=== PATIENT | female | born 1965 | race Caucasian/White ===

== ENCOUNTER 2017-07-23 14:17 | Emergency (ER) | payer SELFPAY ==
[2017-07-23 14:31] VITALS: BP 124/84
[2017-07-23] MEDS ORDERED: DIPH/PERTUSS(ACELL)/TETANUS VAC/PF 0.5 ML SYR (>=10YO) IM ONE (14:40)
--- NOTE | 2017-07-23 14:46 | ER Document Report ---
HPI - HPI Pain Level: 4 Notes: Patient is a 52-year-old female with a h/o type 2 DM, well-controlled, who presents to the ED complaining of left plantar foot pain status post injury 2 weeks ago. Patient states that she stepped on a binder clip that she believes punctured her skin. Patient is most concerned about a possible infection to that area. Patient states that she is been ambulatory, but limping on occasion. Patient has not noticed any other obvious abscess or purulent discharge. Patient states the pain does not radiate and is located to the pads of her toes. She has not had any other recent illness. Denies any antibiotic drug allergies. Denies any smoking or IV drug use. Patient denies any history of MRSA. Denies any headache, fever, URI, sore throat, chest pain, palpitations , syncope, cough, shortness of breath, wheeze, dyspnea, abdominal pain, nausea/ vomiting/diarrhea, urinary retention, dysuria, hematuria, loss of control of bowel or bladder, numbness/tingling, saddle anesthesia, muscle paralysis/ weakness, or rash. Unknown last tetanus. - ROS Systems Reviewed and Negative: Yes All other systems reviewed and negative - REPRODUCTIVE Reproductive: DENIES: : Past Medical History - Social History Smoking Status: Never Smoker Family History: Other - FH of IBD - Past Medical History Cardiac Medical History: Reports: Hx Hypertension Neurological Medical History: Denies: Hx Seizures Endocrine Medical History: Reports: Hx Diabetes Mellitus Type 2 Psychiatric Medical History: Reports: Hx Depression Past Surgical History: Denies: Hx Hysterectomy - Immunizations Hx Diphtheria, Pertussis, Tetanus Vaccination: Yes Hx Pneumococcal Vaccination: 02/03/14 Vertical Provider Document - CONSTITUTIONAL Agree With Documented VS: Yes Notes: PHYSICAL EXAMINATION: GENERAL: Well-appearing, well-nourished and in no acute distress. LUNGS: Breath sounds clear to auscultation bilaterally and equal. No wheezes rales or rhonchi. HEART: Regular rate and rhythm without murmurs, rubs, gallops. Musculoskeletal: Left foot: FROM to passive/active. Strength 5+/5. No obvious swelling, warmth, erythema, streaks, abscess, or discharge. + tenderness to the plantar facscia of distal foot. There is a noted skin circular lambert from the clip she stepped on. N/V intact distal. Extremities: No cyanosis, clubbing, or edema b/l. Peripheral pulses 2+. Capillary refill less than 3 seconds. NEUROLOGICAL: Normal speech, normal gait. Normal sensory, motor exams PSYCH: Normal mood, normal affect. SKIN: Warm, Dry, normal turgor, no rashes or lesions noted. - INFECTION CONTROL TRAVEL OUTSIDE OF THE [place] IN LAST 30 DAYS: No Course - Re-evaluation Re-evalutation: 07/23/17 15:05 Patient is an afebrile, well-hydrated, 52-year-old female who presents to the ED with left foot pain, suspect plantar fasciitis versus possible mild infection. Vitals are acceptable. PE is otherwise unremarkable for any neurovascular compromise, obvious tendon/ligament rupture, obvious fracture/ dislocation, septic joint, cellulitis/abscess. X-ray was unremarkable for any acute pathology. Tdap was given today. As precautionary, I will be sending her home with Keflex/Bactrim as she is a diabetic. Conservative measures for symptoms. Recheck with your PCM in 2-3 days. Return to the ED with any worsening/concerning symptoms otherwise as reviewed discharge. Patient is in agreement. - Vital Signs Vital signs: Temp Pulse Resp BP Pulse Ox 98.2 F 85 16 124/84 96 07/23/17 14:29 07/23/17 14:29 07/23/17 14:29 07/23/17 14:29 07/23/17 14:29 Discharge - Discharge Clinical Impression: Left foot pain Condition: Stable Disposition: HOME, SELF-CARE Instructions: Epsom Salt Soaks ([facility]) Additional Instructions: Rest, cool compress Keep the skin clean Wash with soap and water Epsom salt soaks Triple antibiotic ointment if any break in the skin Tylenol/ibuprofen as needed Light stretches daily Strength exercises as able Moist heat and massage may help Monitor symptoms closely for any worsening signs of infection F/u with your PCP in 3-5 days for a recheck Consider consult(s) with Orthopedics/physical therapy for ongoing/worsening symptoms Return to the ED with any worsening symptoms and/or development of fever, headache, chest pain, palpitations, syncope, shortness of breath, trouble breathing, abdominal pain, n/v/d, abscess, purulent discharge, red streaks, worsening swelling, or other worsening symptoms that are concerning to you. Prescriptions: Cephalexin Monohydrate [Keflex 500 mg Capsule] 500 mg PO BID #20 capsule Sulfamethoxazole/Trimethoprim [Bactrim Ds Tablet] 1 each PO BID #20 tablet Referrals: [facility] ([facility]) [Provider Group] - Follow up as needed RUSSELL MEHTA DPM [ACTIVE STAFF] - Follow up as needed
--- NOTE | 2017-07-23 15:01 | RADIOLOGY REPORT (SQ) ---
EXAM DESCRIPTION: FOOT LEFT COMPLETE COMPLETED DATE/TIME: 07/23/2017 2:51 pm REASON FOR STUDY: left foot pain COMPARISON: None. NUMBER OF VIEWS: Three views. TECHNIQUE: AP, lateral and oblique radiographic images acquired of the left foot. LIMITATIONS: None. FINDINGS: MINERALIZATION: Normal. BONES: No acute fracture or dislocation. Prominent calcaneal spurs. JOINTS: No effusions. SOFT TISSUES: No soft tissue swelling. No foreign body. OTHER: No other significant finding. IMPRESSION: Calcaneal spurs with no acute abnormality. TECHNICAL DOCUMENTATION: JOB ID: [id number] [employer]- All Rights Reserved Reading location - IP/workstation name: [email or web address]
== END 2017-07-23 15:29 | disposition home or self-care (01) ==
LOC: ER 14:17
DX: M79.672 Pain in left foot (principal); E11.9 Type 2 diabetes mellitus without complications; I10 Essential (primary) hypertension; W22.8XXA Striking against or struck by other objects, initial encounter
CPT/HCPCS: 99283

== ENCOUNTER 2017-09-12 00:29 | Emergency (ER) | payer BC ==
[2017-09-12 01:17] LABS: ABSOLUTE BASOPHILS # (AUTO) 0.1 10^3/uL (0.0-0.2); ABSOLUTE EOSINOPHILS # (AUTO) 0.2 10^3/uL (0.0-0.6); ABSOLUTE LYMPHOCYTES (AUTO) 2.8 10^3/uL (0.5-4.7); ABSOLUTE MONOCYTES (AUTO) 0.6 10^3/uL (0.1-1.4); ABSOLUTE NEUT (AUTO) 3.3 10^3/uL (1.7-8.2); BASOPHILS % (AUTO) 1.1 % (0-2); EOSINOPHILS % (AUTO) 2.2 % (0-6); HEMATOCRIT 43.8 % (36.0-47.0); HEMOGLOBIN 14.4 g/dL (12.0-15.5); LYMPHOCYTES % (AUTO) 40.4 % (13-45); MEAN CORPUSCULAR HEMOGLOBIN 30.1 pg (27.0-33.4); MEAN CORPUSCULAR HGB CONC 32.8 g/dL (32.0-36.0); MEAN CORPUSCULAR VOLUME 92 fl (80-97); MONOCYTES % (AUTO) 9.3 % (3-13); PLATELET COUNT 248 10^3/uL (150-450); RED BLOOD COUNT 4.78 10^6/uL (3.72-5.28); RED CELL DISTRIBUTION WIDTH 13.6 % (11.5-14.0); TOTAL CELLS COUNTED % (AUTO) 100 %
[2017-09-12 01:42] LABS: ALANINE AMINOTRANSFERASE 42 U/L (9-52); ALBUMIN 3.9 g/dL (3.5-5.0); ALKALINE PHOSPHATASE 121 U/L (38-126); ANION GAP 12 (5-19); ASPARTATE AMINO TRANSFERASE 28 U/L (14-36); BILIRUBIN,DIRECT 0.1 mg/dL (0.0-0.4); BILIRUBIN,TOTAL 0.1 mg/dL (0.2-1.3); BLOOD UREA NITROGEN 12 mg/dL (7-20); CALCIUM 9.4 mg/dL (8.4-10.2); CARBON DIOXIDE 28 mmol/L (22-30); CHLORIDE 98 mmol/L (98-107); LIPASE 202.3 U/L (23-300); POTASSIUM 4.2 mmol/L (3.6-5.0); SODIUM 138.2 mmol/L (137-145); TOTAL PROTEIN 6.3 g/dL (6.3-8.2)
[2017-09-12 01:51] LABS: GLUCOSE 428 mg/dL (75-110)
[2017-09-12] MEDS ORDERED: NORMAL SALINE 1000 ML 1,000 ML IV ONE ×2 (01:59→02:21)
[2017-09-12 02:16] LABS: APPEARANCE,URINE CLEAR; BILIRUBIN,URINE NEGATIVE (NEGATIVE); COLOR,URINE STRAW; GLUCOSE, URINE >=500 mg/dL (NEGATIVE); KETONES,URINE NEGATIVE (NEGATIVE); LEUKOCYTE ESTERASE,URINE TRACE (NEGATIVE); NITRITE,URINE NEGATIVE (NEGATIVE); PROTEIN,URINE NEGATIVE (NEGATIVE); URINE SPECIFIC GRAVITY 1.031; UROBILINOGEN,URINE NEGATIVE mg/dL (<2.0)
--- NOTE | 2017-09-12 02:45 | ER Document Report ---
ED General - General Chief Complaint: High Blood Sugar Stated Complaint: BLOOD SUGAR PROBLEMS Time Seen by Provider: 09/12/17 00:51 Mode of Arrival: Ambulatory Information source: Patient TRAVEL OUTSIDE OF THE [place] IN LAST 30 DAYS: No - HPI Patient complains to provider of: high blood sugar Onset: Other - "all day" Quality of pain: No pain Associated symptoms: Sweating Exacerbated by: Denies Relieved by: Denies Similar symptoms previously: Yes Recently seen / treated by doctor: No Notes: Patient states that her blood sugar was 455 prior to her driving herself here for evaluation. She does take Invokana as well as metformin and has not missed any doses recently. Patient states that her blood sugars normally run high with her last hemoglobin A1c being 8.6. She does see Dr. Gore who is her primary medical doctor. She states her blood sugars throughout the day today were 258 399 and then 455. She states there is no change in her diet. She does have a history of hypertension pressure and anxiety. She is on cholesterol medications because "I have diabetes". Past surgical history significant for uterine ablation. Patient does not drink or smoke. She denies any nausea vomiting diarrhea visual changes sore throat chest pain shortness of breath abdominal pain dysuria or any other urinary symptoms. States prior to arrival she took a 5 hour energy drink because her son stated that it will increase her metabolism and drop her sugar. - Related Data Allergies/Adverse Reactions: niacin [From Niaspan] Allergy (Severe, Verified 09/12/17 01:09) Shortness of Breath Past Medical History - General Information source: Patient - Social History Smoking Status: Never Smoker Frequency of alcohol use: None Drug Abuse: None Lives with: Family Family History: Other - FH of IBD Patient has suicidal ideation: No Patient has homicidal ideation: No - Past Medical History Cardiac Medical History: Reports: Hx Hypercholesterolemia, Hx Hypertension Pulmonary Medical History: Reports: None EENT Medical History: Reports: None Neurological Medical History: Reports: None. Denies: Hx Seizures Endocrine Medical History: Reports: Hx Diabetes Mellitus Type 2 Renal/ Medical History: Reports: None. Denies: Hx Peritoneal Dialysis Malignancy Medical History: Reports: None GI Medical History: Reports: None Musculoskeltal Medical History: Reports None Skin Medical History: Reports None Psychiatric Medical History: Reports: Hx Anxiety, Hx Depression Traumatic Medical History: Reports: None Infectious Medical History: Reports: None Past Surgical History: Reports: Hx Abdominal Surgery - hernia, Hx Section - x3, Hx Gynecologic Surgery - ablation of uterus, Hx Orthopedic Surgery - knee, feet,, Hx Tonsillectomy. Denies: Hx Hysterectomy - Immunizations Hx Diphtheria, Pertussis, Tetanus Vaccination: Yes Hx Pneumococcal Vaccination: 02/03/14 Review of Systems - Review of Systems Constitutional: Diaphoresis EENT: No symptoms reported Cardiovascular: No symptoms reported Respiratory: No symptoms reported Gastrointestinal: No symptoms reported Genitourinary: No symptoms reported Female Genitourinary: No symptoms reported Musculoskeletal: No symptoms reported Skin: See HPI Hematologic/Lymphatic: No symptoms reported Neurological/Psychological: No symptoms reported Physical Exam - Vital signs Vitals: Temp Pulse Resp BP Pulse Ox 97.9 F 96 16 140/99 H 96 09/12/17 00:40 09/12/17 00:40 09/12/17 00:40 09/12/17 00:40 09/12/17 00:40 Interpretation: Normal - Notes Notes: PHYSICAL EXAMINATION: GENERAL: Well-appearing, well-nourished and in no acute distress. Ambulatory to the bathroom and back without any difficulty HEAD: Atraumatic, normocephalic. EYES: Pupils equal round and reactive to light, extraocular movements intact, conjunctiva are normal. ENT: Nares patent, oropharynx clear without exudates. Moist mucous membranes. NECK: Normal range of motion, supple without lymphadenopathy LUNGS: Breath sounds clear to auscultation bilaterally and equal. No wheezes rales or rhonchi. HEART: Regular rate and rhythm without murmurs ABDOMEN: obese soft, nontender, nondistended abdomen. No guarding, no rebound. No masses appreciated. Female : deferred Musculoskeletal: Normal range of motion, no pitting or edema. No cyanosis. NEUROLOGICAL: Cranial nerves grossly intact. Normal speech, normal gait. Normal sensory, motor exams PSYCH: Normal mood, normal affect. SKIN: Warm, Dry, normal turgor, no rashes or lesions noted. Course - Re-evaluation Re-evalutation: 09/12/17 03:50 Blood sugar 305 Labs- All tests 24 hr 09/12/17 09/12/17 09/12/17 01:02 01:02 01:02 WBC 7.0 RBC 4.78 Hgb 14.4 Hct 43.8 MCV 92 MCH 30.1 MCHC 32.8 RDW 13.6 Plt Count 248 Seg Neutrophils % 47.0 Lymphocytes % 40.4 Monocytes % 9.3 Eosinophils % 2.2 Basophils % 1.1 Absolute Neutrophils 3.3 Absolute Lymphocytes 2.8 Absolute Monocytes 0.6 Absolute Eosinophils 0.2 Absolute Basophils 0.1 Sodium 138.2 Potassium 4.2 Chloride 98 Carbon Dioxide 28 Anion Gap 12 BUN 12 Creatinine 0.49 L Est GFR ( Amer) > 60 Est GFR (Non-Af Amer) > 60 Glucose 428 H* Calcium 9.4 Total Bilirubin 0.1 L Direct Bilirubin 0.1 Neonat Total Bilirubin Not Reportable Neonat Direct Bilirubin Not Reportable Neonat Indirect Bili Not Reportable AST 28 ALT 42 Alkaline Phosphatase 121 Troponin I < 0.012 Total Protein 6.3 Albumin 3.9 Lipase 202.3 Urine Color Urine Appearance Urine pH Ur Specific [place] Urine Protein Urine Glucose (UA) Urine Ketones Urine Blood Urine Nitrite Urine Bilirubin Urine Urobilinogen Ur Leukocyte Esterase Urine WBC (Auto) Urine RBC (Auto) Squamous Epi Cells Auto Urine Ascorbic Acid 09/12/17 01:12 WBC RBC Hgb Hct MCV MCH MCHC RDW Plt Count Seg Neutrophils % Lymphocytes % Monocytes % Eosinophils % Basophils % Absolute Neutrophils Absolute Lymphocytes Absolute Monocytes Absolute Eosinophils Absolute Basophils Sodium Potassium Chloride Carbon Dioxide Anion Gap BUN Creatinine Est GFR ( Amer) Est GFR (Non-Af Amer) Glucose Calcium Total Bilirubin Direct Bilirubin Neonat Total Bilirubin Neonat Direct Bilirubin Neonat Indirect Bili AST ALT Alkaline Phosphatase Troponin I Total Protein Albumin Lipase Urine Color STRAW Urine Appearance CLEAR Urine pH 6.0 Ur Specific [place] 1.031 Urine Protein NEGATIVE Urine Glucose (UA) >=500 H Urine Ketones NEGATIVE Urine Blood NEGATIVE Urine Nitrite NEGATIVE Urine Bilirubin NEGATIVE Urine Urobilinogen NEGATIVE Ur Leukocyte Esterase TRACE H Urine WBC (Auto) 3 Urine RBC (Auto) 1 Squamous Epi Cells Auto 1 Urine Ascorbic Acid NEGATIVE Chest X-Ray 09/12/17 02:45 IMPRESSION: 1. No acute pulmonary process identified. 09/12/17 04:07 Blood sugar 195 - Vital Signs Vital signs: Temp Pulse Resp BP Pulse Ox 97.9 F 84 12 124/83 97 09/12/17 00:40 09/12/17 01:07 09/12/17 04:00 09/12/17 04:01 09/12/17 04:00 - Laboratory Result Diagrams: 09/12/17 01:02 09/12/17 01:02 Laboratory results interpreted by me: 09/12/17 09/12/17 01:02 01:12 Creatinine 0.49 L Glucose 428 H* Total Bilirubin 0.1 L Urine Glucose (UA) >=500 H Ur Leukocyte Esterase TRACE H - Diagnostic Test Radiology reviewed: Image reviewed, Reports reviewed - EKG Interpretation by Me EKG shows normal: Sinus rhythm - 75 Rate: Normal Discharge - Discharge Clinical Impression: Hyperglycemia due to type 2 diabetes mellitus Condition: Stable Disposition: HOME, SELF-CARE Instructions: Hyperglycemia ([facility]) Additional Instructions: Please record your blood sugars at least 4 times tomorrow. Call your primary medical doctor on Wednesday a.m. for follow-up. Please return to the emergency department if you have chest pain shortness of breath increasing sugars or any other concerns. Referrals: ELIDA GORE MD [Primary Care Provider] - 09/13/17
--- NOTE | 2017-09-12 03:20 | RADIOLOGY REPORT (SQ) ---
EXAM DESCRIPTION: Single view of the chest CLINICAL HISTORY: Elevated blood sugar COMPARISON: None. FINDINGS: Single frontal view of the chest. The cardiomediastinal silhouette has normal size and contour. No consolidation, pneumothorax, or pleural effusion. No displaced rib fractures identified. Leads overlie the chest. Upper abdominal soft tissues are unremarkable. IMPRESSION: 1. No acute pulmonary process identified.
[2017-09-12] MEDS ORDERED: ACETAMINOPHEN 325 MG TABLET ONE (03:28)
[2017-09-12] MEDS ORDERED: ACETAMINOPHEN 325 MG TABLET PO ONE (03:31)
[2017-09-12 04:07] VITALS: BP 124/83
--- NOTE | 2017-09-12 16:20 | EKG REPORT ---
SEVERITY:- NORMAL ECG - SINUS RHYTHM : Confirmed by: Monique Dejesus 12-Sep-2017 16:19:38
== END 2017-09-12 04:07 | disposition home or self-care (01) ==
LOC: ER 00:29
DX: E11.65 Type 2 diabetes mellitus with hyperglycemia (principal); I10 Essential (primary) hypertension; F41.9 Anxiety disorder, unspecified; Z79.899 Other long term (current) drug therapy
CPT/HCPCS: 93005; 99285; 96360; 36415; 82962; 83690; 85025; 80053; 81001; 84484; 71045; 93010; J7030

== ENCOUNTER 2019-11-24 19:32 | Emergency (ER) | payer BC ==
--- NOTE | 2019-11-24 20:07 | ER Document Report ---
ED Medical Screen (RME) - General Chief Complaint: Fall Injury Stated Complaint: CHEST TIGHTNESS/FALL Time Seen by Provider: 11/24/19 19:42 Primary Care Provider: ELIDA GORE MD [Primary Care Provider] - Follow up as needed Mode of Arrival: Wheelchair Information source: Patient Notes: Patient is a 54-year-old female comes emergency room complaining of having a fal l around 3:30 PM today at [place]. Patient states no one witnessed her fall she believes she tripped but she cannot remember the actual trip cannot be certain she did not have loss of consciousness however she did get up off the ground on her own accord she went back into the store to finish shopping when she got home tonight she sat down and put on some of her pain medicine rub because she was h urting. She states that she believes she fell and hit her knees on the cement and then fell forward striking her face. She states when she got home and started with the pain cream she started having heaviness in her chest and is what brought her into the emergency room. She also states that she has had bilateral knee replacements the right knee is very painful and swollen and the other knee is just scraped up. Physical exam: Patient is a well-nourished well-developed 54-year-old female though in no apparent distress does appear uncomfortable. Patient is uncertain as to the exact circumstances of her fall leading to her chest pain. She is unsure whether she had a syncopal episode or she tripped and fell hit in her knees and her chest and her face. She is also unsure as to if she had any loss of consciousness since [place] was no one around but she did get up to go inside shop. Cardiac: Has a regular rate and rhythm with no murmurs. Lungs: Bilateral breath sounds breath sounds increased clear auscultation. Also noted on physical examination his palpation of patient's anterior chest does show a moderate amount of discomfort to palpation across the anterior chest where patient believes she fell on the cement. Abdomen: Bowel sounds present all 4 quads. HEENT examination patient's external features of her facial does she has ecchymosis on the chin itself. She has some slight discolorations around the upper lips. I have greeted and performed a rapid initial assessment of this patient. A comprehensive ED assessment and evaluation of the patient, analysis of test results and completion of the medical decision making process will be conducted by additional ED providers. Dictation of this chart was performed using voice recognition software; therefore, there may be some unintended grammatical errors. Given patient has not give me specific reason that she had a fall mechanically and or she is had a syncopal episode felt necessary to do the complete cardiac work-up. Also because she is unable to open her mouth very wide secondary to the discomfort and pain in the ecchymosis of the chin. TRAVEL OUTSIDE OF THE [place] IN LAST 30 DAYS: No - Related Data Allergies/Adverse Reactions: niacin [From Niaspan] Allergy (Severe, Verified 09/12/17 01:09) Shortness of Breath Home Medications: metformin 1000mg bid. glimiride at hs. ozembic qfriday. setlamrime. buspar Past Medical History - Past Medical History Cardiac Medical History: Reports: Hx Hypercholesterolemia, Hx Hypertension Neurological Medical History: Denies: Hx Seizures Endocrine Medical History: Reports: Hx Diabetes Mellitus Type 2 Renal/ Medical History: Denies: Hx Peritoneal Dialysis Psychiatric Medical History: Reports: Hx Anxiety, Hx Depression Past Surgical History: Reports: Hx Abdominal Surgery - hernia, Hx Section - x3, Hx Gynecologic Surgery - ablation of uterus, Hx Orthopedic Surgery - knee, feet,, Hx Tonsillectomy. Denies: Hx Hysterectomy - Immunizations Hx Diphtheria, Pertussis, Tetanus Vaccination: Yes Doctor's Discharge - Discharge Referrals: ELIDA GORE MD [Primary Care Provider] - Follow up as needed
[2019-11-24 20:30] LABS: ABSOLUTE BASOPHILS # (AUTO) 0.1 10^3/uL (0.0-0.2); ABSOLUTE EOSINOPHILS # (AUTO) 0.1 10^3/uL (0.0-0.6); ABSOLUTE MONOCYTES (AUTO) 0.6 10^3/uL (0.1-1.4); ABSOLUTE NEUT (AUTO) 5.2 10^3/uL (1.7-8.2); BASOPHILS % (AUTO) 1.2 % (0-2); EOSINOPHILS % (AUTO) 1.6 % (0-6); HEMATOCRIT 43.7 % (36.0-47.0); HEMOGLOBIN 14.8 g/dL (12.0-15.5); LYMPHOCYTES % (AUTO) 33.1 % (13-45); MEAN CORPUSCULAR HGB CONC 33.9 g/dL (32.0-36.0); MEAN CORPUSCULAR VOLUME 89 fl (80-97); MONOCYTES % (AUTO) 7.1 % (3-13); PLATELET COUNT 318 10^3/uL (150-450); RED BLOOD COUNT 4.93 10^6/uL (3.72-5.28); RED CELL DISTRIBUTION WIDTH 13.5 % (11.5-14.0); TOTAL CELLS COUNTED % (AUTO) 100 %; WHITE BLOOD COUNT 9.1 10^3/uL (4.0-10.5)
[2019-11-24 20:40] LABS: ALBUMIN 4.3 g/dL (3.5-5.0); ALKALINE PHOSPHATASE 73 U/L (38-126); ANION GAP 8 (5-19); ASPARTATE AMINO TRANSFERASE 25 U/L (14-36); BILIRUBIN,TOTAL 0.4 mg/dL (0.2-1.3); BLOOD UREA NITROGEN 10 mg/dL (7-20); CALCIUM 9.3 mg/dL (8.4-10.2); CARBON DIOXIDE 28 mmol/L (22-30); CHLORIDE 101 mmol/L (98-107); GLUCOSE 107 mg/dL (75-110); TOTAL PROTEIN 7.2 g/dL (6.3-8.2)
[2019-11-24 20:42] LABS: APPEARANCE,URINE SLIGHTLY-CLOUDY; BILIRUBIN,URINE NEGATIVE (NEGATIVE); COLOR,URINE YELLOW; GLUCOSE, URINE NEGATIVE (NEGATIVE); KETONES,URINE NEGATIVE (NEGATIVE); LEUKOCYTE ESTERASE,URINE SMALL (NEGATIVE); NITRITE,URINE NEGATIVE (NEGATIVE); PROTEIN,URINE NEGATIVE (NEGATIVE); URINE SPECIFIC GRAVITY 1.021; UROBILINOGEN,URINE NEGATIVE mg/dL (<2.0)
--- NOTE | 2019-11-24 20:47 | RADIOLOGY REPORT (SQ) ---
EXAM DESCRIPTION: Right knee RadLex: XR KNEE 1-2 VIEWS Views: 2 CLINICAL HISTORY: 54 years Female; Fall; COMPARISON: None. FINDINGS: Changes of previous arthroplasty are noted. No loosening of the prosthetic components. Alignment is anatomic. No acute fracture. No lytic changes or periosteal reaction. No joint effusion. IMPRESSION: 1. No acute findings.
--- NOTE | 2019-11-24 20:50 | RADIOLOGY REPORT (SQ) ---
EXAM DESCRIPTION: XR CHEST 1 VIEW COMPLETED DATE/TME: 11/24/2019 19:58 CLINICAL HISTORY: 54 years, Female, chest pain COMPARISON: X-ray chest 09/12/2017 NUMBER OF VIEWS: TECHNIQUE: LIMITATIONS: None. FINDINGS: No evidence of pulmonary infiltrate or pleural effusion. The heart and mediastinum are unremarkable. Pulmonary vascularity appears normal. There is no significant change, as compared with the prior x-ray(s). IMPRESSION: No acute finding. copyright 2010 [id number]- All Rights Reserved
--- NOTE | 2019-11-24 20:50 | RADIOLOGY REPORT (SQ) ---
EXAM DESCRIPTION: Left knee RadLex: XR KNEE 3 VIEWS Views: 3 CLINICAL HISTORY: 54 years Female; Fall; COMPARISON: None. FINDINGS: Changes of previous arthroplasty are noted. No evidence for loosening of the prosthetic components. Alignment is anatomic. No patellar subluxation on sunrise view. No joint effusion. No lytic bone changes or periosteal reaction. IMPRESSION: 1. No acute findings. 2. Previous arthroplasty
--- NOTE | 2019-11-24 20:52 | RADIOLOGY REPORT (SQ) ---
EXAM DESCRIPTION: Left wrist RadLex: XR WRIST 3 OR MORE VIEWS Views: 3 CLINICAL HISTORY: 54 years Female; FALL; PAIN; COMPARISON: None. FINDINGS: Negative for acute fracture, dislocation, or radiopaque foreign body. IMPRESSION: 1. No acute findings.
--- NOTE | 2019-11-24 20:53 | RADIOLOGY REPORT (SQ) ---
EXAM DESCRIPTION: RadLex: CT HEAD WITHOUT IV CONTRAST CLINICAL HISTORY: 54 years Female; fall ?LOC; TECHNIQUE: Noncontrast CT head. All CT scans at this facility use dose modulation, iterative reconstruction, and/or weight based dosing when appropriate to reduce radiation dose to as low as reasonably achievable. COMPARISON: CT 11/17/2010 FINDINGS: Kruse matter, white matter, ventricles, and cisterns are within normal limits. No acute hemorrhage or mass effect. Visualized portions of paranasal sinuses and mastoids are clear. No acute calvarial fractures. IMPRESSION: 1. No acute intracranial findings.
--- NOTE | 2019-11-24 21:12 | RADIOLOGY REPORT (SQ) ---
INDICATION: fall. COMPARISON: None CORRELATION: None TECHNIQUE: Noncontrast spiral axial CT images were obtained through the cervical spine with multiplanar reconstructions. This exam was performed according to our departmental dose-optimization program, which includes automated exposure control, adjustment of the mA and/or kV according to patient size and/or use of iterative reconstruction techniques. FINDINGS: No acute displaced fracture is identified of the cervical spine. Alignment is anatomic. No focal alignment abnormality is identified. 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 Reversal the normal cervical lordosis centered on C4-C5. Likely positioning or spasm. Surrounding soft tissues of the neck are unremarkable. The pharynx appears symmetric. Thyroid is homogeneous. The lung apices are grossly clear. IMPRESSION: No acute bony injury is seen to the cervical spine.
--- NOTE | 2019-11-24 21:14 | RADIOLOGY REPORT (SQ) ---
INDICATION: fall. Pain COMPARISON: None CORRELATION: None TECHNIQUE: Noncontrast spiral axial CT images were obtained of the facial bones. Multiplanar reconstructions. This exam was performed according to our departmental dose-optimization program, which includes automated exposure control, adjustment of the mA and/or kV according to patient size and/or use of iterative reconstruction techniques. FINDINGS: Brain dictated separately. No acute displaced fracture seen of the facial bones. Alignment is anatomic. The paranasal sinuses are grossly clear. Mastoid air cells are clear. Orbits and eyeballs are unremarkable.. 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 IMPRESSION: No acute bony injury is seen to the face.
[2019-11-24] MEDS ORDERED: HYDROCODONE/ACETAMINOPHEN 5-325 MG TABLET PO ONE (21:22)
[2019-11-24] MEDS ORDERED: ONDANSETRON 4 MG TAB.RAPDIS PO ONE (21:22)
--- NOTE | 2019-11-24 21:25 | ER Document Report ---
ED Fall - General Chief Complaint: Fall Injury Stated Complaint: CHEST TIGHTNESS/FALL Time Seen by Provider: 11/24/19 19:42 Primary Care Provider: ELIDA GORE MD [Primary Care Provider] - Follow up as needed KATHERINE HERNÁNDEZ MD [ACTIVE PROVISIONAL STAFF] - Follow up as needed Mode of Arrival: Wheelchair Information source: Patient Notes: Patient states that she was shopping and was walking into the store and fell around 3:00 this afternoon. Patient denies any loss of consciousness and states that she likely tripped although she is not certain. Patient states that she hit her knees tend to catch herself with her left hand injuring her left wrist and hit her face. Patient with bilateral knee pain, left wrist tenderness and some nausea. Patient states that around 630 she became sore and started to have some chest discomfort. TRAVEL OUTSIDE OF THE [place] IN LAST 30 DAYS: No - HPI Occurred: This afternoon Where: Outdoors, Public place Context: Fell from standing Location of injury/pain: Face, Knee, Wrist Quality of pain: Pressure Pain Level: 4 - Related data Allergies/Adverse Reactions: niacin [From Niaspan] Allergy (Severe, Verified 09/12/17 01:09) Shortness of Breath Home Medications: metformin 1000mg bid. glimiride at hs. ozembic qfriday. setlamrime. buspar Past Medical History - General Information source: Patient - Social History Smoking Status: Former Smoker Frequency of alcohol use: None Drug Abuse: None Occupation: Financial services Family History: Other - FH of IBD Patient has homicidal ideation: No - Past Medical History Cardiac Medical History: Reports: Hx Hypercholesterolemia, Hx Hypertension Neurological Medical History: Denies: Hx Seizures Endocrine Medical History: Reports: Hx Diabetes Mellitus Type 2 Renal/ Medical History: Denies: Hx Peritoneal Dialysis Psychiatric Medical History: Reports: Hx Anxiety, Hx Depression Past Surgical History: Reports: Hx Abdominal Surgery - hernia, Hx Section - x3, Hx Gynecologic Surgery - ablation of uterus, Hx Orthopedic Surgery - knee, feet,, Hx Tonsillectomy. Denies: Hx Hysterectomy - Immunizations Hx Diphtheria, Pertussis, Tetanus Vaccination: Yes Hx Pneumococcal Vaccination: 02/03/14 Review of Systems - Review of Systems Constitutional: No symptoms reported EENT: No symptoms reported Cardiovascular: Chest pain Respiratory: No symptoms reported. denies: Cough Gastrointestinal: Nausea. denies: Abdominal pain, Vomiting Genitourinary: No symptoms reported Female Genitourinary: No symptoms reported Musculoskeletal: Joint pain - Lateral knee pain, left wrist pain Skin: Change in color - Bruising to chin and left knee, Other - abrasion to the knees Hematologic/Lymphatic: No symptoms reported Neurological/Psychological: No symptoms reported. denies: Headaches Physical Exam - Vital signs Vitals: Temp Pulse Resp BP Pulse Ox 98.7 F 92 12 155/111 H 97 11/24/19 19:38 11/24/19 19:38 11/24/19 19:38 11/24/19 19:38 11/24/19 19:38 - General General appearance: Appears well, Alert In distress: None - HEENT Head: Normocephalic, Ecchymosis - chin. No: [place]'s eyes Eyes: Normal Conjunctiva: Normal Extraocular movements intact: Yes Eyelashes: Normal Pupils: PERRL Ears: Normal External canal: Normal Tympanic membrane: Normal. No: Hemotympanum Mouth/Lips: Normal. No: Dental fracture Mucous membranes: Normal Pharynx: Normal Neck: Normal, Supple. No: Lymphadenopathy - Respiratory Respiratory status: No respiratory distress Chest status: Tender, Pain on movement Breath sounds: Normal Chest palpation: Tender - Cardiovascular Rhythm: Regular Heart sounds: S1 appreciated, S2 appreciated Murmur: No - Abdominal Inspection: Morbidly Obese Distension: No distension Bowel sounds: Normal Tenderness: Nontender Organomegaly: No organomegaly - Back Back: Normal, Nontender. No: CVA tenderness, Vertebra tenderness - Extremities General upper extremity: Normal ROM General lower extremity: Normal ROM Shoulder: Normal, Nontender Arm: Normal, Nontender Elbow: Normal, Nontender Forearm: Normal, Nontender Wrist: Tender - Left wrist tenderness over anatomical snuffbox and distal radius and ulna. No: Deformity, Dislocation, Ecchymosis, Instability, Laceration, Limited ROM Hand: Tender - Tenderness to the thenar eminence of left hand with overlying ecchymosis, Ecchymosis. No: Abrasion, Deformity, Swelling Thigh: Normal, Nontender Knee: Tender - Bilateral knee tenderness over the patella swelling worse to the right knee as compared to the left, Abrasion - Left knee, Ecchymosis, Pain with ROM, Patellar tendon intact. No: Laxity with valgus stress, Laxity with varus stress, Unable to bear weight Ankle: Normal, Nontender - Neurological Neuro grossly intact: Yes Cognition: Normal [place] Coma Scale Eye Opening: Spontaneous [place] Coma Scale Verbal: Oriented Isabella Coma Scale Motor: Obeys Commands Isabella Coma Scale Total: 15 - Psychological Associated symptoms: Normal affect, Normal mood - Skin Skin Temperature: Warm Skin Moisture: Dry Skin Color: Ecchymosis - To chin, left thenar eminence, bilateral knees Skin irregularity: other - Abrasion to bilateral knees, upper lip Course - Re-evaluation Re-evalutation: 11/24/19 21:41 Patient without any acute fracture on x-ray or CT imaging. Patient without any changes on EKG and no elevation in troponin. Patient with likely mechanical fall. Patient with reproducible chest wall tenderness. Patient with no focal neurologic deficits at this time. Patient does report some urinary frequency and does have some leukocyte esterase noted on urinalysis. Will culture urine and treat at this time. Patient also has anatomical snuffbox tenderness, patient will be placed in a splint and referred to orthopedics for further evaluation. Presentation of chest pain in an otherwise well appearing patient. Low clinical suspicion for ACS given clinical history, exam, EKG without ST elevations or depressions, and negative initial troponin. HEART score less than or equal to 3. PE also seems unlikely given clinical history, absence of tachycardia or dyspnea. CXR without evidence of pneumothorax or pneumonia. No widened mediastinum. Consulted with Dr. Maloney regarding patient presentation, agrees with discharge plan of care, no additional testing advised at this time. Chest pain in a patient without evidence of cardiac or other serious etiology on workup today. I discussed with patient that, based on their age, risk factors and emergency department testing today, the likelihood that their symptoms are related to a heart attack is very low. The patient demonstrates decision making capacity and has verbalized an understanding of these risks to me. Based on this, the patient has chosen to follow-up as an outpatient. Usual chest pain return precautions reviewed. The patient states understanding and agreement with this plan. - Vital Signs Vital signs: Temp Pulse Resp BP Pulse Ox 98.6 F 78 18 138/94 H 98 11/24/19 22:19 11/24/19 22:19 11/24/19 22:19 11/24/19 22:19 11/24/19 22:19 - Laboratory Result Diagrams: 11/24/19 20:09 11/24/19 20:09 Laboratory results interpreted by me: 11/24/19 11/24/19 20:09 20:09 Sodium 136.5 L Ur Leukocyte Esterase SMALL H 11/24/19 21:43 Labs- All tests 24 hr 11/24/19 11/24/19 11/24/19 20:09 20:09 20:09 WBC 9.1 RBC 4.93 Hgb 14.8 Hct 43.7 MCV 89 MCH 30.0 MCHC 33.9 RDW 13.5 Plt Count 318 Lymph % (Auto) 33.1 [place] % (Auto) 7.1 Eos % (Auto) 1.6 Baso % (Auto) 1.2 Absolute Neuts (auto) 5.2 Absolute Lymphs (auto) 3.0 Absolute Monos (auto) 0.6 Absolute Eos (auto) 0.1 Absolute Basos (auto) 0.1 Seg Neutrophils % 57.0 Sodium 136.5 L Potassium 4.0 Chloride 101 Carbon Dioxide 28 Anion Gap 8 BUN 10 Creatinine 0.55 Est GFR ( Amer) > 60 Est GFR (MDRD) Non-Af > 60 Glucose 107 Calcium 9.3 Total Bilirubin 0.4 Direct Bilirubin 0.0 Neonat Total Bilirubin Not Reportable Neonat Direct Bilirubin Not Reportable Neonat Indirect Bili Not Reportable AST 25 ALT 24 Alkaline Phosphatase 73 Troponin I < 0.012 Total Protein 7.2 Albumin 4.3 Urine Color Urine Appearance Urine pH Ur Specific [place] Urine Protein Urine Glucose (UA) Urine Ketones Urine Blood Urine Nitrite Urine Bilirubin Urine Urobilinogen Ur Leukocyte Esterase Urine WBC (Auto) Urine RBC (Auto) Urine Bacteria (Auto) Squamous Epi Cells Auto Urine Mucus (Auto) Urine Ascorbic Acid 11/24/19 20:09 WBC RBC Hgb Hct MCV MCH MCHC RDW Plt Count Lymph % (Auto) [place] % (Auto) Eos % (Auto) Baso % (Auto) Absolute Neuts (auto) Absolute Lymphs (auto) Absolute Monos (auto) Absolute Eos (auto) Absolute Basos (auto) Seg Neutrophils % Sodium Potassium Chloride Carbon Dioxide Anion Gap BUN Creatinine Est GFR ( Amer) Est GFR (MDRD) Non-Af Glucose Calcium Total Bilirubin Direct Bilirubin Neonat Total Bilirubin Neonat Direct Bilirubin Neonat Indirect Bili AST ALT Alkaline Phosphatase Troponin I Total Protein Albumin Urine Color YELLOW Urine Appearance SLIGHTLY-CLOUDY Urine pH 5.0 Ur Specific [place] 1.021 Urine Protein NEGATIVE Urine Glucose (UA) NEGATIVE Urine Ketones NEGATIVE Urine Blood NEGATIVE Urine Nitrite NEGATIVE Urine Bilirubin NEGATIVE Urine Urobilinogen NEGATIVE Ur Leukocyte Esterase SMALL H Urine WBC (Auto) 17 Urine RBC (Auto) 2 Urine Bacteria (Auto) TRACE Squamous Epi Cells Auto 3 Urine Mucus (Auto) OCC Urine Ascorbic Acid NEGATIVE - Diagnostic Test Radiology reviewed: Image reviewed, Reports reviewed - EKG Interpretation by Me EKG shows normal: Sinus rhythm Rate: Normal Rhythm: NSR When compared to previous EKG there are: No significant change Additional EKG results interpreted by me: 11/24/19 21:26 Sinus rhythm with rate of 87, QTc 482, no ST elevation, no T wave inversion, no significant changes when compared to prior. Discharge - Discharge Clinical Impression: Abrasion, bilateral knee contusions, Chest wall pain Fall Qualifiers: Encounter type: initial encounter Qualified Code(s): W19.XXXA - Unspecified fall, initial encounter Bruise of face Qualifiers: Encounter type: initial encounter Qualified Code(s): S00.83XA - Contusion of other part of head, initial encounter Left wrist sprain Qualifiers: Encounter type: initial encounter Qualified Code(s): S63.502A - Unspecified sprain of left wrist, initial encounter Condition: Stable Disposition: HOME, SELF-CARE Instructions: Abrasions ([facility]), Chest Wall Pain ([facility]), Head Injury Precautions ([facility]), Ice & Elevation ([facility]), Oral Narcotic Medication ([facility]), Possible Hidden Fracture ([facility]), Splint Precautions ([facility]) Additional Instructions: Return immediately for any new or worsening symptoms Followup with your primary care provider, call tomorrow to make a followup appointment Follow-up with orthopedics for further evaluation of wrist injury to evaluate for any possible hidden fracture, call Wednesday for an appointment Follow-up with ict project manager for outpatient follow-up after your fall covid testing site phone number [phone] Prescriptions: Cephalexin Monohydrate [Keflex 500 mg Capsule] 500 mg PO Q6H 5 Days #20 capsule Hydrocodone/Acetaminophen [[place] 5-325 mg Tablet] 1 tab PO Q6 PRN #12 tablet PRN Reason: Forms: Return to Work Referrals: ELIDA GORE MD [Primary Care Provider] - Follow up as needed KATHERINE HERNÁNDEZ MD [ACTIVE PROVISIONAL STAFF] - Follow up as needed
[2019-11-24] MEDS ORDERED: DIPH/PERTUSS(ACELL)/TETANUS VAC/PF 0.5 ML SYR (>=10YO) IM ONE (21:36)
[2019-11-24] MEDS ORDERED: CEPHALEXIN 500 MG CAPSULE PO ONE (21:38)
[2019-11-24 22:19] VITALS: BP 138/94
--- NOTE | 2019-11-24 23:08 | EKG REPORT ---
SEVERITY:- NORMAL ECG - SINUS RHYTHM : Confirmed by: Lori Rodriguez MD 24-Nov-2019 23:07:59
== END 2019-11-24 22:19 | disposition home or self-care (01) ==
LOC: ER 19:32
DX: S63.502A Unspecified sprain of left wrist, initial encounter (principal); S00.83XA Contusion of other part of head, initial encounter; S80.212A Abrasion, left knee, initial encounter; S80.211A Abrasion, right knee, initial encounter; R07.89 Other chest pain; R35.0 Frequency of micturition; W01.0XXA Fall on same level from slipping, tripping and stumbling without subsequent striking against object, initial encounter; Y92.512 Supermarket, store or market as the place of occurrence of the external cause; Z79.84 Long term (current) use of oral hypoglycemic drugs; E78.00 Pure hypercholesterolemia, unspecified; I10 Essential (primary) hypertension; E11.9 Type 2 diabetes mellitus without complications; E66.01 Morbid (severe) obesity due to excess calories
CPT/HCPCS: 93005; 99284; 90471; 36415; 87086; 85025; 80053; 81001; 84484; 71045; 73560; 73562; 73110; 70450; 70486; 72125; 90715; 93010; S0119

== ENCOUNTER → 2019-12-01 | Outpatient (CLI) | payer SELFPAY ==
--- NOTE | 2019-12-01 14:07 | ER RDC ASSESSMENT REPORT ---
Intake - In the Last 14 days Have you traveled outside [place]?: No Have you been in close contact with someone CONFIRMED: No Worked in Healthcare?: No - Symptoms Subjective Fever([place] feverish): No Chills: No Muscule Aches: No Runny Nose: No Sore Throat: Yes Cough (New or worsening chronic cough): No Shortness of breath: No Nausea or Vomiting: No Headache: Yes Abdominal Pain: Yes Diarrhea(3 or more loose stools in last 24 hours): Yes - Do you have any of the following Chronic lung disease: Asthma or emphysema or COPD: Yes Cystic Fibrosis: No Diabetes: Yes High Blood Pressure: No Cardiovascular Disease: No Chronic Kidney Disease: No Chronic Liver Disease: No Chronic blood disorder like Sickle Cell Disease: No Weak immune system due to disease or medication: No Neurologic condition that limits movement: No Developmental delay - Moderate to Severe: No Recent (within past 2 weeks) or current : No Morbid Obesity (>100 pounds over ideal weight): No Obesity Comment: Height 5 foot 2 inches weight 239 pounds - Objective Temperature: 97.7 F Pulse Rate: 94 Respiratory Rate: 18 Blood Pressure: 131/72 O2 Sat by Pulse Oximetry: 96 Objective: Given above, testing performed: If Testing Performed: Test Specimen Type Sent to General - General Information source: Patient Notes: Patient here at [facility] for COVID testing patient started to feel like she had allergy symptoms started several days ago about November 26. Daughter potentially was exposed to somebody known for COVID and is also having testing done and will follow up with PCP on Wednesday. - Related Data Allergies/Adverse Reactions: niacin [From Niaspan] Allergy (Severe, Verified 09/12/17 01:09) Shortness of Breath Past Medical History - Social History Smoking Status: Former Smoker - Quit 10 years ago Family History: Other - FH of IBD - Past Medical History Cardiac Medical History: Reports: Hx Hypercholesterolemia, Hx Hypertension Neurological Medical History: Denies: Hx Seizures Endocrine Medical History: Reports: Hx Diabetes Mellitus Type 2 Renal/ Medical History: Denies: Hx Peritoneal Dialysis Psychiatric Medical History: Reports: Hx Anxiety, Hx Depression Past Surgical History: Reports: Hx Abdominal Surgery - hernia, Hx Section - x3, Hx Gynecologic Surgery - ablation of uterus, Hx Orthopedic Surgery - knee, feet,, Hx Tonsillectomy. Denies: Hx Hysterectomy Physical Exam - General General appearance: Appears well, Alert In distress: None Notes: PHYSICAL EXAMINATION: GENERAL: Well-appearing and in no acute distress. HEAD: Atraumatic, normocephalic. EYES: sclera anicteric, conjunctiva are normal. ENT: nares patent. Moist mucous membranes. NECK: Normal range of motion, supple without lymphadenopathy LUNGS: CTAB and equal. No wheezes rales or rhonchi. Respirations even and unlabored lung sounds clear. HEART: Regular rate and rhythm without murmurs ABDOMEN: Soft, nontender, normal bowel sounds, no guarding. EXTREMITIES: No cyanosis. NEUROLOGICAL: Normal speech. PSYCH: Normal mood, normal affect. SKIN: Warm, Dry, normal turgor, Diagnostic Results Laboratory Results: Pending strep culture pending cover testing results. Patient provided instructions regarding COVID to include: As a person under investigation for Covid 19, the [facility] of Health and Human Services, division of public health advises you to adhere to the following guidance until your test results are reported to you. If your test result is positive, you will receive additional information from your provider and your local health department at that time. Remain at home until you are cleared by the health provider or public health authorities. Keep a log of visitors to your home, notify any visitors to your home of your isolation status. If you plan to move to a new address or leave the county, notify the local health department in your County. Call your doctor or seek care if you have an urgent medical need. Before seeking medical care, call ahead to get instructions from the provider before arriving at the medical office clinic or hospital. Notify them that you are being tested for the virus that causes Covid 19 so that arrangements can be made, as necessary, to prevent transmission to others in the healthcare setting. Next, notify the local health department in your county. If a medical emergency arises and you need to call 911, inform the first responders that you are being tested for the virus that causes Covid 19. Next, notify the local health department in your county. Patient Education/Counseling Counseling/Education: Patient informed of negative rapid strep results. Patient presents with upper respiratory symptoms worrisome for possible Covid 19. Patient does not have emergency worring symptoms such as difficulty breathing, shortness of breath, chest pain, pressure, confusion or cyanosis. Patient appears suitable for discharge. Patient instructed to follow-up with PCP Dr. Llanes. To ED for persistent or worsening symptoms. Patient's vital signs are stable and patient is nontoxic in appearance. Good return precautions have been discussed with patient, patient verbalized understanding and is agreeable with discharge plan of care at this time. RDC Discharge - Discharge Condition: Stable Disposition: Home; Selfcare
[2019-12-01 14:08] VITALS: BP 131/72
== END ==
LOC: RDC 12:03
PROVIDERS: ATTEND Nurse Practitioner Family
DX: J06.9 Acute upper respiratory infection, unspecified (principal); Z20.828 Contact with and (suspected) exposure to other viral communicable diseases; J02.9 Acute pharyngitis, unspecified; R51 Headache; R10.9 Unspecified abdominal pain; R19.7 Diarrhea, unspecified; E11.9 Type 2 diabetes mellitus without complications; I10 Essential (primary) hypertension; E78.00 Pure hypercholesterolemia, unspecified; Z88.8 Allergy status to other drugs, medicaments and biological substances
CPT/HCPCS: 87070; 87880; 87635; C9803; 99201; 99211